=== PATIENT | female | born 1930 | race Caucasian/White ===

== ENCOUNTER 2017-06-14 18:01 | Emergency (ER) | payer OTHER, MEDICARE ==
[2017-06-14 18:05] VITALS: BP 219/109; PULSE 96; RESP 18; TEMP 98; O2SAT 98
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
[2017-06-14 18:12] VITALS: BP 183/76; PULSE 96; RESP 18; O2SAT 98
[2017-06-14] MEDS ORDERED: LEVO175T2 PO (18:12)
[2017-06-14] MEDS ORDERED: SODIUM CHLORIDE 0.9% FLUSH 10 ML FLUSH IVF PRN (18:30)
[2017-06-14] MEDS ORDERED: TETANUS/DIPHTHERIA TOXOID ADULT 0.5 ML VIAL IM ONE (18:30)
[2017-06-14 18:40] VITALS: BP 171/85; PULSE 92; RESP 18; O2SAT 98
[2017-06-14 18:45] LABS: AUTOMATED NEUTROPHIL # 4.9 TH/MM3 (1.8-7.7); BASOPHIL # 0.1 TH/MM3 (0-0.2); BASOPHIL % 0.8 % (0.0-2.0); EOSINOPHIL # 0.1 TH/MM3 (0-0.4); EOSINOPHIL % 1.9 % (0.0-4.0); HEMATOCRIT 39.6 % (35.0-46.0); LYMPH % 19.4 % (9.0-44.0); LYMPHOCYTE # 1.5 TH/MM3 (1.0-4.8); MEAN CELL VOLUME 91.9 FL (80.0-100.0); MEAN CORPUSCULAR HEMOGLOBIN 30.1 PG (27.0-34.0); MEAN CORPUSCULAR HGB CONC 32.7 % (32.0-36.0); MEAN PLATELET VOLUME 8.9 FL (7.0-11.0); MONOCYTE # 0.9 TH/MM3 (0-0.9); NEUT % 65.9 % (16.0-70.0); PLATELET COUNT 278 TH/MM3 (150-450); RED BLOOD COUNT 4.31 MIL/MM3 (4.00-5.30); WHITE BLOOD COUNT 7.5 TH/MM3 (4.0-11.0)
[2017-06-14 18:56] LABS: CALCIUM 9.9 MG/DL (8.5-10.1)
[2017-06-14 18:57] LABS: BICARBONATE 31.1 MEQ/L (21.0-32.0)
[2017-06-14 19:00] LABS: CREATININE 0.78 MG/DL (0.50-1.00); INTERNATIONAL NORMALIZED RATIO 1.1 RATIO; PROTHROMBIN TIME - PATIENT 11.2 SEC (9.8-11.6)
--- NOTE | 2017-06-14 19:51 | PD ---
Physical Exam Time Seen by Provider: 19:[address] Stubbs with this patient with me to check the imaging and make a disposition. The patient refused CAT scans of the abdomen stating she had no abdominal pain and did not wish to go through this. She also refused contrast. Data Data Last Documented VS Vital Signs Date Time Temp Pulse Resp B/P (MAP) Pulse Ox O2 Delivery O2 Flow Rate FiO2 06/14/17 18:40 92 18 171/85 (113) 98 Room Air 06/14/17 18:05 98.0 Orders Orders Basic Metabolic Panel (Bmp) (06/14/17 18:20) Complete Blood Count With Diff (06/14/17 18:20) Prothrombin Time / Inr (Pt) (06/14/17 18:20) Act Partial Throm Time (Ptt) (06/14/17 18:20) Type And Screen (06/14/17 18:20) Ct Brain W/O Iv Contrast(Rout) (06/14/17 18:20) Ct Cerv Spine W/O Contrast (06/14/17 18:20) Ct Facial Bones W/O Iv Cont (06/14/17 18:20) Iv Access Insert/Monitor (06/14/17 18:20) Ecg Monitoring (06/14/17 18:20) Oximetry (06/14/17 18:20) Oxygen Administration (06/14/17 18:20) Sodium Chloride 0.9% Flush (Ns Flush) (06/14/17 18:30) Tetanus/Diphtheria Tox Adult (Tetanus/Di (06/14/17 18:30) Tramadol (Ultram) (06/14/17 20:00) Labs Laboratory Tests Test 06/14/17 18:30 White Blood Count 7.5 TH/MM3 Red Blood Count 4.31 MIL/MM3 Hemoglobin 13.0 GM/DL Hematocrit 39.6 % Mean Corpuscular Volume 91.9 FL Mean Corpuscular Hemoglobin 30.1 PG Mean Corpuscular Hemoglobin Concent 32.7 % Red Cell Distribution Width 14.0 % Platelet Count 278 TH/MM3 Mean Platelet Volume 8.9 FL Neutrophils (%) (Auto) 65.9 % Lymphocytes (%) (Auto) 19.4 % Monocytes (%) (Auto) 12.0 % Eosinophils (%) (Auto) 1.9 % Basophils (%) (Auto) 0.8 % Neutrophils # (Auto) 4.9 TH/MM3 Lymphocytes # (Auto) 1.5 TH/MM3 Monocytes # (Auto) 0.9 TH/MM3 Eosinophils # (Auto) 0.1 TH/MM3 Basophils # (Auto) 0.1 TH/MM3 CBC Comment DIFF FINAL Differential Comment Prothrombin Time 11.2 SEC Prothromb Time International Ratio 1.1 RATIO Activated Partial Thromboplast Time 25.4 SEC Blood Urea Nitrogen 25 MG/DL Creatinine 0.78 MG/DL Random Glucose 99 MG/DL Calcium Level 9.9 MG/DL Sodium Level 138 MEQ/L Potassium Level 3.5 MEQ/L Chloride Level 100 MEQ/L Carbon Dioxide Level 31.1 MEQ/L Anion Gap 7 MEQ/L Estimat Glomerular Filtration Rate 70 ML/MIN [facility] Medical Record Reviewed: Yes Supervised Visit with LISETTE: No Interpretation(s) The CT facial bones show no definite fractures, dislocations or lytic or sclerotic lesions noted. The coagulation profile is normal. The CT of the cervical spine shows no fracture and only shows degenerative spondylolysis without significant compromise to the thecal sac or the exiting nerve roots. The CT brain shows slight atrophic and small vessel ischemic changes without any evidence for acute hemorrhage or mass effect. The CBC is normal. The basic metabolic profile shows a BUN of 25, GFR of 70 but is otherwise normal. Differential Diagnosis Avulsion teeth, fracture face, contusion face Narrative Course The patient needs to see a dentist. She has multiple tooth avulsions. The tramadol seems to have helped her pain considerably and she wants to go home now. Additional Instruction: As we discussed, follow-up with a dentist. I will write another prescription for tramadol to make sure that you have enough at home. Med/Other Pt SpecificInfo: Prescription(s) given Scripts Tramadol (Tramadol) 50 Mg Tab 50 MG PO Q4H Y for PAIN, #30 TAB 0 Refills Prov: Nathan Torres MD 06/14/17 Disposition: 01 DISCHARGE HOME Condition: Stable Nathan Torres MD Jun 14, 2017 19:51
[2017-06-14] MEDS ORDERED: traMADol HCL 50 MG TAB PO ONE (20:00)
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
[2017-06-14] MEDS ORDERED: TRAM50TA PO (20:35)
[2017-06-14 20:50] VITALS: BP 168/88; PULSE 78; RESP 18; O2SAT 98
== END 2017-06-14 20:54 | disposition home or self-care (01) ==
LOC: PHED 18:01
DX: S02.5XXA Fracture of tooth (traumatic), initial encounter for closed fracture (principal); M47.9 Spondylosis, unspecified; V43.52XA Car driver injured in collision with other type car in traffic accident, initial encounter
CPT/HCPCS: 70450; 70486; 72125; 80048; 85025; 85610; 85730; 86850; 86900; 86901